=== PATIENT | female | born 1940 | race American Indian/Alaskan Native ===

== ENCOUNTER 2021-05-09 15:14 | Emergency (ER) | payer MEDICARE ==
[2021-05-09 16:00] VITALS: BP 128/55
--- NOTE | 2021-05-09 19:46 | Emergency Department Report ---
ED Lower Extremity HPI - General Chief Complaint: Extremity Injury, Lower Stated Complaint: LEG Bleeding Time Seen by Provider: 05/09/21 19:40 Source: patient Mode of arrival: Ambulatory Limitations: No Limitations - History of Present Illness Initial Comments: Patient presents with a laceration to the right leg that she sustained Sunday. She cut her leg on a basket. It has been oozing since that time. She came here for evaluation at the direction of her oncologist. She is on blood thinners. Her oncologist told her today to come here to see if we needed to reverse her blood thinner. They also commented that she had low platelets and they thought she might need a transfusion. Patient states that she has cleaned the wound. It is just oozing. It is not pulsatile. She has no pain. She has no other complaints. There is no bleeding from other sites. - Related Data Allergies Allergy/AdvReac Type Severity Reaction Status Date / Time No Known Allergies Allergy Unverified 05/09/21 16:00 ED Review of Systems ROS: Stated complaint: LEG Bleeding Other details as noted in HPI Comment: All other systems reviewed and negative Constitutional: denies: fever Eyes: denies: vision change ENT: denies: throat pain Respiratory: denies: cough Cardiovascular: denies: chest pain Endocrine: denies: unexplained weight loss Gastrointestinal: denies: abdominal pain Genitourinary: denies: hematuria Musculoskeletal: denies: back pain Skin: denies: rash Neurological: denies: headache Hematological/Lymphatic: as per HPI, easy bruising ED Past Medical Hx - Past Medical History Hx Hypertension: Yes Hx CVA: No Hx Congestive Heart Failure: Yes Hx Diabetes: Yes Hx Deep Vein Thrombosis: Yes Hx Arthritis: Yes Hx Seizures: No Hx Asthma: Yes (COPD) - Family History Family history: hypertension - Social History Smoking Status: Never Smoker ED Physical Exam - General Limitations: No Limitations, Other (Pulse ox noted and normal) General appearance: alert, in no apparent distress - Head Head exam: Present: atraumatic, normocephalic, normal inspection - Eye Eye exam: Present: normal appearance, EOMI. Absent: scleral icterus - ENT ENT exam: Present: normal external ear exam - Neck Neck exam: Present: normal inspection. Absent: meningismus - Respiratory Respiratory exam: Absent: respiratory distress - Cardiovascular Cardiovascular Exam: Present: other (Normal pulses). Absent: JVD - Extremities Exam Extremities exam: Present: normal capillary refill, pedal edema (2+ bilateral), other (There is a superficial laceration to the anterior aspect of the right lower extremity just proximal to the ankle. There is no active bleeding. There is no venous bleeding.). Absent: calf tenderness - Back Exam Back exam: Present: full ROM - Neurological Exam Neurological exam: Present: alert, oriented X3, normal gait. Absent: motor sensory deficit - Psychiatric Psychiatric exam: Present: normal affect, normal mood - Skin Skin exam: Present: warm, dry ED Course Vital Signs 05/09/21 15:57 Temperature 98.5 F Pulse Rate 82 Respiratory 18 Rate Blood Pressure 128/55 [Left] O2 Sat by Pulse 100 Oximetry - Reevaluation(s) Reevaluation #1: 05/09/21 19:46 labs ordered. Reevaluation #2: 05/09/21 22:17 CBC was noted. Patient was discharged. Old records noted. ED Lower Extremity MDM - Lab Data Result diagrams: 05/09/21 19:47 - Medical Decision Making Patient presents secondary to a wound evaluation. She has no active bleeding from the wound. I do not believe her anticoagulant should be reversed. She does have thrombocytopenia but it 117,000, I do not anticipate any complication. She was treated symptomatically and referred back to her oncologist for recheck. Her immunizations were already up-to-date. There was no evidence of wound infection. There is no indication for suture repair. Critical Care Time: No Critical care attestation.: If time is entered above; I have spent that time in minutes in the direct care of this critically ill patient, excluding procedure time. ED Disposition Clinical Impression: Thrombocytopenia Laceration of leg, right Qualifiers: Encounter type: initial encounter Qualified Code(s): S81.811A - Laceration without foreign body, right lower leg, initial encounter Disposition: HOME / SELF CARE / HOMELESS Is pt being admited?: No Condition: Stable Instructions: Sterile Tape Wound Care, Platelet Aggregation Test, Nonsutured Laceration Care Additional Instructions: Keep the wound clean. Hold your blood thinner today. Continue to ice and elevate the leg. Return for problems. Follow-up with your regular doctor for management. Referrals: PRIMARY CARE, [Primary Care Provider] - 3-5 Days
[2021-05-09 20:06] LABS: Mean Corpuscular HGB Conc 30 % (30-34); Mean Corpuscular Volume 78 fl (79-97); Platelet Count 117 K/mm3 (140-440); Red Blood Count 5.14 M/mm3 (3.65-5.03); Red Cell Distribution Width 17.1 % (13.2-15.2)
[2021-05-09 20:07] LABS: Hematocrit 40.1 % (30.3-42.9); Hemoglobin 12.1 gm/dl (10.1-14.3)
== END 2021-05-09 22:00 | disposition home or self-care (01) ==
LOC: ED 15:14
DX: D69.6 Thrombocytopenia, unspecified (principal); S81.811A Laceration without foreign body, right lower leg, initial encounter; I10 Essential (primary) hypertension; E11.8 Type 2 diabetes mellitus with unspecified complications; Z86.79 Personal history of other diseases of the circulatory system; X58.XXXA Exposure to other specified factors, initial encounter; Y93.89 Activity, other specified; Y92.89 Other specified places as the place of occurrence of the external cause; Y99.8 Other external cause status
CPT/HCPCS: 36415; 85027; 99283